=== PATIENT | female | born 1985 | race Native Hawaiian/Other Pacific Islander ===

== ENCOUNTER 2020-06-17 06:20 | Inpatient (IN) | payer BC ==
[~2020-06-17] VITALS: Ht 152.4 cm; Wt 90.7 kg
--- NOTE | 2020-06-17 06:30 | NUR ---
BIBS FOR C/O HEAVY VAGINAL BLEEDING W. LOWER BADOMINAL PAIN X 15 DAYS. 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 W. HX OF BLOOD TRANSFUSION IN 2010. PT [id number]. REPORTED NOT SEXUALLY ACTIVE AND NO CHANCE OF PREGANNCY. AMBULATORY TO BED 16. VSS. WILL CONT TO MONITOR,
--- NOTE | 2020-06-17 06:34 | NUR ---
AT BED SIDE
--- NOTE | 2020-06-17 06:49 | NUR ---
BLOOD DRAWN AND SENT TO LAB
[2020-06-17 07:00] LABS: BASOPHILS % (AUTO) 0.4 % (0.0-2.0); MONOCYTES # (AUTO) 0.6 /CMM (0.1-1.30)
[2020-06-17 07:04] LABS: EOSINOPHILS % (AUTO) 2.3 % (0.0-6.0); HEMATOCRIT 22 % (33-45); LYMPHOCYTES # (AUTO) 1.3 /CMM (0.8-4.8); LYMPHOCYTES % (AUTO) 11.5 % (20.0-44.0); MEAN CORPUSCULAR HGB CONC 31 g/dl (31.0-36.0); MEAN CORPUSCULAR VOLUME 82 fL (82-100); MONOCYTES % (AUTO) 5.6 % (2.0-12.0); NEUTROPHILS # (AUTO) 8.8 /CMM (1.8-8.9); NEUTROPHILS % (AUTO) 80.2 % (43.0-81.0); PLATELET COUNT (AUTO) 353 /CMM (150-450); RED BLOOD CELL COUNT(AUTO) 2.74 MIL/uL (4.0-5.2)
[2020-06-17 07:12] LABS: HEMOGLOBIN 6.9 g/dL (11.5-14.8)
[2020-06-17 07:16] LABS: CALCIUM, SERUM 8.6 mg/dL (8.5-10.1); CREATININE 0.8 mg/dL (0.6-1.3); POTASSIUM 3.6 mmol/L (3.5-5.1)
--- NOTE | 2020-06-17 07:20 | NUR ---
PANEL ON-CALL PAGED
[2020-06-17 07:21] LABS: ALBUMIN 3.4 g/dL (3.4-5.0); BILIRUBIN,TOTAL 0.2 mg/dL (0.2-1.0); TOTAL PROTEIN, SERUM 7.1 g/dL (6.4-8.2)
--- NOTE | 2020-06-17 07:27 | NUR ---
move packet provided to admitting
--- NOTE | 2020-06-17 07:28 | NUR ---
PT AND SIGNED CONSENT FOR BLOOD TRANSFUSION
[2020-06-17] MEDS ORDERED: FERR325T23 PO (07:50)
[2020-06-17] MEDS ORDERED: LISI2.5T2 PO (07:50)
--- NOTE | 2020-06-17 07:54 | NUR ---
[employer]ON[employer] WAREHOUSE ASSOCIATE AT BEDSIDE FOR SONAL
[2020-06-17] MEDS ORDERED: MORPHINE SULFATE INJ 2 MG/ML DISP.SYRIN IV PRN (08:00)
[2020-06-17] MEDS ORDERED: ONDANSETRON HCL/PF 4 MG/2 ML VIAL IVP PRN (08:00)
[2020-06-17] MEDS ORDERED: Z GUARD REMEDY 2 OZ OINT TP PRN (08:00)
[2020-06-17] MEDS ORDERED: IV NS 0.9% 1,000 ML IV PRN (08:00)
[2020-06-17] MEDS ORDERED: MAGNESIUM HYDROXIDE 30 ML UDC PO PRN (08:00)
[2020-06-17] MEDS ORDERED: HYDROCODONE/APAP 5/325MG TABLET PO PRN (08:00)
[2020-06-17] MEDS: PANTOPRAZOLE 40 MG TABLET.DR PO SCH (08:00)
[2020-06-17] MEDS ORDERED: ACETAMINOPHEN 325 MG TABLET PO PRN (08:00)
[2020-06-17] MEDS ORDERED: MAG HYDROX/AL HYDROX/SIMETH 30 ML UDC PO PRN (08:00)
--- NOTE | 2020-06-17 08:26 | NUR ---
VERIFIED BLOOD PRODUCT WITH MEHRAN GARDNER RN
[2020-06-17 08:42] LABS: IRON, SERUM 33 ug/dl (50-175); TOTAL IRON BINDING CAPACITY 371 ug/dl (250-450)
--- NOTE | 2020-06-17 08:45 | NUR ---
COVID SWAB TEST COLLECTED AND SENT TO LAB
[2020-06-17 08:56] LABS: FERRITIN 24 ng/mL (8-388)
[2020-06-17 09:18] LABS: BAND % (MANUAL) 2 % (0.0-5.0); LYMPHOCYTES % (MANUAL) 7 % (16-48); MONOCYTES % (MANUAL) 11 % (0-11.0); MYELOCYTES % 1 % (0-0); NEUTROPHILS % (MANUAL) 79 (42-76)
--- NOTE | 2020-06-17 09:51 | NUR ---
BLOOD TRANSFUSION COMPLETED. NO ADVERSE REACTION NOTED TO THE PATIENT. PATIENT AAO x 4, NAD NOTED. HOOKED TO MONITOR. VSS. WILL CONTINUE TO MONITOR ACCORDINGLY
--- NOTE | 2020-06-17 09:57 | NUR ---
BED ASSIGNED [id number]
--- NOTE | 2020-06-17 10:02 | NUR ---
REPORT GIVEN TO KATHLEEN ESTRADA FOR ALFRED
--- NOTE | 2020-06-17 10:45 | NUR ---
RN NOTES RECEIVED PT FROM ER. VS STABLE. IV SITE AT L ARM, INTACT, PATENT AND FLUSHED. NO PAIN REPORTED AT THIS TIME. PLACED TO BED. SAFETY MEASURES OBSERVED. CALL LIGHT WITHIN REACH. BED LOCKED AND AT LOWEST POSITION WITH SIDE RAILS UP X2. WILL CONTINUE TO MONITOR
--- NOTE | 2020-06-17 19:20 | NUR ---
RN CLOSING NOTES PT RESTING IN BED. A/O X4. IV SITE AT L ARM, INTACT, PATENT AND FLUSHED. NS RUNNING AT 75MLS/HR. INFUSING WELL. NO PAIN REPORTED AT THIS TIME. SAFETY MEASURES OBSERVED. CALL LIGHT WITHIN REACH. BED LOCKED AND AT LOWEST POSITION WITH SIDE RAILS UP X2. WILL ENDORSE TO NIGHT NURSE FOR ALFRED
[2020-06-17 19:56] LABS: BASOPHILS # (AUTO) 0.1 /CMM (0.0-0.2); BASOPHILS % (AUTO) 0.6 % (0.0-2.0); HEMATOCRIT 25 % (33-45); HEMOGLOBIN 7.9 g/dL (11.5-14.8); LYMPHOCYTES # (AUTO) 1.7 /CMM (0.8-4.8); LYMPHOCYTES % (AUTO) 12.6 % (20.0-44.0); MEAN CORPUSCULAR HGB CONC 31 g/dl (31.0-36.0); MEAN CORPUSCULAR VOLUME 84 fL (82-100); MONOCYTES # (AUTO) 0.9 /CMM (0.1-1.30); MONOCYTES % (AUTO) 6.5 % (2.0-12.0); NEUTROPHILS # (AUTO) 10.3 /CMM (1.8-8.9); NEUTROPHILS % (AUTO) 78.3 % (43.0-81.0); PLATELET COUNT (AUTO) 326 /CMM (150-450); RED BLOOD CELL COUNT(AUTO) 2.99 MIL/uL (4.0-5.2); WHITE BLOOD COUNT (AUTO) 13.1 K/uL (4.3-11.0)
[2020-06-17 20:00] VITALS: BP 131/77
--- NOTE | 2020-06-17 20:05 | NUR ---
RN OPENING NOTES PATIENT RECEIVED RESTING IN BED A/O X 4. STABLE ON RA WITH BREATHING EVEN AND UNLABORED, NO SOB NOTED. NO SIGNS OF ACUTE DISTRESS. NO COMPLAINTS OF PAIN OR DISCOMFORT AT THE MOMENT. IV LOCATED ON LAC #18 RUNNING NS @ 75 ML/HR. SAFETY PRECAUTIONS IN PLACE WITH BED IN LOWEST POSITION, CALL LIGHT WITHIN REACH, BREAKS ON, SIDE RAILS UP. WILL CONTINUE TO MONITOR THROUGHOUT THE NIGHT.
[2020-06-17 20:16] LABS: EOSINOPHILS % (MANUAL) 1 % (0-4); LYMPHOCYTES % (MANUAL) 16 % (16-48); MONOCYTES % (MANUAL) 4 % (0-11.0); NEUTROPHILS % (MANUAL) 79 (42-76)
[2020-06-17 20:41] VITALS: BP 131/77
[2020-06-17] MEDS ORDERED: TEMAZEPAM 15 MG CAPSULE PO PRN (22:00)
[2020-06-18] VITALS (8 sets, daily range): BP systolic 105–141; BP diastolic 50–88
[2020-06-18 06:33] LABS: BASOPHILS % (AUTO) 0.5 % (0.0-2.0); EOSINOPHILS % (AUTO) 2.4 % (0.0-6.0); HEMATOCRIT 24 % (33-45); HEMOGLOBIN 7.7 g/dL (11.5-14.8); LYMPHOCYTES # (AUTO) 1.4 /CMM (0.8-4.8); LYMPHOCYTES % (AUTO) 13.6 % (20.0-44.0); MEAN CORPUSCULAR HGB CONC 32 g/dl (31.0-36.0); MEAN CORPUSCULAR VOLUME 83 fL (82-100); MONOCYTES # (AUTO) 0.6 /CMM (0.1-1.30); MONOCYTES % (AUTO) 5.8 % (2.0-12.0); NEUTROPHILS # (AUTO) 8.1 /CMM (1.8-8.9); NEUTROPHILS % (AUTO) 77.7 % (43.0-81.0); PLATELET COUNT (AUTO) 326 /CMM (150-450); RED BLOOD CELL COUNT(AUTO) 2.94 MIL/uL (4.0-5.2); WHITE BLOOD COUNT (AUTO) 10.4 K/uL (4.3-11.0)
[2020-06-18 06:56] LABS: THYROID STIMULATING HORMONE 2.742 uIU/mL (0.358-3.74)
[2020-06-18 06:58] LABS: CALCIUM, SERUM 8.6 mg/dL (8.5-10.1); CREATININE 0.6 mg/dL (0.6-1.3); MAGNESIUM 1.9 mg/dL (1.8-2.4); PHOSPHORUS 3.5 mg/dL (2.5-4.9); POTASSIUM 3.9 mmol/L (3.5-5.1)
--- NOTE | 2020-06-18 07:06 | NUR ---
RN CLOSING NOTES PATIENT RESTING IN BED A/O X 4. STABLE ON RA WITH BREATHING EVEN AND UNLABORED, NO SOB NOTED. NO SIGNS OF ACUTE DISTRESS. NO COMPLAINTS OF PAIN OR DISCOMFORT AT THE MOMENT. IV LOCATED ON LAC #18 RUNNING NS @ 75 ML/HR. SAFETY PRECAUTIONS IN PLACE WITH BED IN LOWEST POSITION, CALL LIGHT WITHIN REACH, BREAKS ON, SIDE RAILS UP. ALL NEEDS ATTENDED TO. WILL ENDORSE TO ONCOMING SHIFT ABOUT ALFRED.
--- NOTE | 2020-06-18 07:45 | NUR ---
RN NOTE THE PATIENT IS RECEIVED IN BED. ALERT AND ORIENTED X4. DENIES PAIN. IN ROOM AIR AND DENIES SOB. RESPIRATION REGULAR AND UNLABORED. TELE BOX READING IS SR 95. PATIENT IN NO APPARENT DISTRESS. ALC G 18 PATENT AND SN INFUSING AT 75ML/HR. NO S/S INFILTRATION NOTED. BED LOW AND LOCKED. SIDE RIALS UP X2. CALL LIGHT WITHIN REACH. WILL CONTINUE TO MONITOR.
[2020-06-18] MEDS: PANTOPRAZOLE 40 MG TABLET.DR PO SCH (07:51)
[2020-06-18] MEDS: LISINOPRIL (5MG) 5 MG TABLET PO SCH (14:00)
--- NOTE | 2020-06-18 15:58 | NUR ---
RN NOTE SPOKE WITH DR NIELSEN AND SHE STATED THAT SHE WILL SEE THE PATIENT TOMORROW 06/19/20. THE PATIENT AND THE CHARGE NURSE ARE MADE AWARE.
--- NOTE | 2020-06-18 18:17 | NUR ---
RN NOTE THE PATIENT ALERT AND ORIENTED X4. DENIES PAIN. IN ROOM AIR AND SATURATION IS AT 98%. DENIES SOB. RESPIRATION REGULAR AND UNLABORED. PATIENT IN NO APPARENT DISTRESS. LA CG 18 PATENT AND SALINE LOCKED. BED LOW AND LOCKED. SIDE RIALS UP X2. CALL LIGHT WITHIN REACH. WILL ENDORSE TO HARNESSMAKER.
--- NOTE | 2020-06-18 19:31 | NUR ---
MS RN OPENING NOTES RECEIVED PATIENT RESTING IN BED COMFORTABLY; A/OX4, BREATHING EVEN AND UNLABORED; TOLERATING ROOM AIR WELL; NO SOB NOTED; NO DISTRESS NOTED; PATIENT AMBULATORY WITH STEADY GAIT; PATIENT ABLE TO MAKE NEEDS KNOWN; LAC # 18 INTACT AND PATENT; FLUSHING WELL; SAFETY PRECAUTIONS IMPLEMENTED; BED LOCKED IN LOW POSITION; SIDE RAILSX2; CALL LIGHT WITHIN REACH; WILL CONT TO MONITOR
--- NOTE | 2020-06-18 20:37 | NUR ---
MS RN NOTES PATIENT AWARE URINE SAMPLE NEEDED FOR URINALYSIS; PATIENT VERBALIZED UNDERSTANDING AND WILL LET US KNOWN WHEN SAMPLE IS READY; CHARGE NURSE AWARE; WILL CONT TO MONITOR
--- NOTE | 2020-06-19 06:28 | NUR ---
MS RN CLOSING NOTES PATIENT RESTING IN BED COMFORTABLY; A/OX4, BREATHING EVEN AND UNLABORED; NO SOB NOTED; TOLEARTING ROOM AIR WELL; NO DISTRESS NOTED; PATIENT DENIES PAIN; PATIENT ABLE TO MAKE NEEDS KNOWN; PATIENT AMBULATORY WITH STEADY GAIT; LAC # 18 INTACT AND PATENT; ALL NEEDS RENDERED; SAFETY PRECAUTIONS IMPLEMENTED; BED LOCKED IN LOW POSITION; SIDE RAILSX2; CALL LIGHT WITHIN EASY REACH; WILL ENDORSE ALFRED TO ONCOMING SHIFT
[2020-06-19 06:40] LABS: BASOPHILS % (AUTO) 0.4 % (0.0-2.0); EOSINOPHILS % (AUTO) 2.4 % (0.0-6.0); HEMATOCRIT 23 % (33-45); HEMOGLOBIN 7.2 g/dL (11.5-14.8); LYMPHOCYTES # (AUTO) 1.7 /CMM (0.8-4.8); LYMPHOCYTES % (AUTO) 15.7 % (20.0-44.0); MEAN CORPUSCULAR HGB CONC 32 g/dl (31.0-36.0); MEAN CORPUSCULAR VOLUME 83 fL (82-100); MONOCYTES # (AUTO) 0.6 /CMM (0.1-1.30); MONOCYTES % (AUTO) 5.7 % (2.0-12.0); NEUTROPHILS # (AUTO) 8.2 /CMM (1.8-8.9); NEUTROPHILS % (AUTO) 75.8 % (43.0-81.0); PLATELET COUNT (AUTO) 306 /CMM (150-450); RED BLOOD CELL COUNT(AUTO) 2.72 MIL/uL (4.0-5.2); WHITE BLOOD COUNT (AUTO) 10.8 K/uL (4.3-11.0)
[2020-06-19 07:21] LABS: CALCIUM, SERUM 8.2 mg/dL (8.5-10.1); CREATININE 0.7 mg/dL (0.6-1.3); PHOSPHORUS 3.3 mg/dL (2.5-4.9); POTASSIUM 4.2 mmol/L (3.5-5.1)
--- NOTE | 2020-06-19 07:35 | NUR ---
MS RN OPENING NOTES BEDSIDE ENDORSEMENT DONE. PATIENT IS AWAKE AND VERBALLY RESPONSIVE, NOT IN ACUTE DISTRESS. A/O X4, ABLE TO MAKE NEEDS KNOWN. BREATHING EVEN AND UNLABORED, TOLERATING ROOM AIR. ABLE TO AMBULATE TO RESTROOM. IV LINE ON LAC #18 INTACT AND PATENT. SAFETY PRECAUTIONS IMPLEMENTED: BED LOCKED AND ON LOW POSITION, SIDE RAILS UP X2, CALL LIGHT WITHIN REACH. WILL CONTINUE TO MONITOR.
[2020-06-19 08:00] VITALS: BP 131/71
[2020-06-19] MEDS: LISINOPRIL (5MG) 5 MG TABLET PO SCH (08:11)
[2020-06-19] MEDS: PANTOPRAZOLE 40 MG TABLET.DR PO SCH (08:11)
[2020-06-19] MEDS ORDERED: FERROUS SULFATE (325 MG) 325 MG/TAB TABLET PO SCH (09:00)
--- NOTE | 2020-06-19 15:57 | NUR ---
RN NOTES PATIENT INQUIRED WHEN SHE WOULD BE SEEN BY THE OB, DR. FLORES. PER DR. EDMONDSON, DR. FLORES WILL SEE PATIENT TODAY FOR OB CONSULT. PATIENT MADE AWARE.
[2020-06-19 16:00] VITALS: BP 116/70
[2020-06-19] MEDS ORDERED: MEDR10TA PO (17:44)
--- NOTE | 2020-06-19 19:00 | NUR ---
POCKET MAKER NOTES PATIENT WAS SEEN BY DR. FLORES FOR OB CONSULT, OK TO D/C FROM HER PERSPECTIVE. DR. EDMONDSON MADE AWARE W/ DISCHARGE ORDER NOTED. DISCHARGE INSTRUCTIONS AND EDUCATION PROVIDED TO PATIENT. PATIENT BELONGINGS LIST AND DISCHARGE FORM SIGNED BY PATIENT; BELONGINGS ACCOUNTED FOR. SKIN IS INTACT. NAME ARMBAND AND IV LINE REMOVED. PATIENT WAS ACCOMPANIED BY ME TO THE LOBBY AND PICKED UP BY , RIKI, VIA PRIVATE CAR. CHARGE NURSE AND MD AWARE OF DISCHARGE.
== END 2020-06-19 19:00 | disposition home or self-care (01) | DRG 761 ==
LOC: ER 06:23 → TELE 09:58 → MED 06-18 11:16
PROVIDERS: ADMIT Nurse Practitioner Acute Care; ATTEND Student in an Organized Health Care Education/Training Program
PROC: 30233N1 Transfusion of Nonautologous Red Blood Cells into Peripheral Vein, Percutaneous Approach (ICD-10-PCS; principal; 2020-06-17)
DX: N92.0 Excessive and frequent menstruation with regular cycle (principal); H81.10 Benign paroxysmal vertigo, unspecified ear; Z68.39 Body mass index [BMI] 39.0-39.9, adult; Z98.890 Other specified postprocedural states; Z79.899 Other long term (current) drug therapy; Z80.9 Family history of malignant neoplasm, unspecified; D50.9 Iron deficiency anemia, unspecified; Z86.19 Personal history of other infectious and parasitic diseases; E66.01 Morbid (severe) obesity due to excess calories; N93.8 Other specified abnormal uterine and vaginal bleeding
CPT/HCPCS: 36415; 76856-TC; 80048-TC; 80061-TC; 80076-TC; 82728-TC; 83540-TC; 83735-TC; 84100-TC; 84443-TC; 84702-TC; 84703-TC; 85025-TC; 85730-TC; 86850-TC; 87081-TC; G0378; J7030; J7040; P9016-BL